=== PATIENT | male | born 1955 | race Caucasian/White ===

== ENCOUNTER → 2020-03-07 09:13 | Outpatient (REF) | payer BC, SELFPAY | LOC: ANHLAB 09:13 | PROVIDERS: Visit Provider Nurse Practitioner | DX: D49.2 Neoplasm of unspecified behavior of bone, soft tissue, and skin (principal) | CPT/HCPCS: 88305 ==

== ENCOUNTER → 2020-05-01 08:50 | Outpatient (REF) | payer BC, SELFPAY | LOC: ANHLAB 08:50 | PROVIDERS: Visit Provider Nurse Practitioner | DX: C44.311 Basal cell carcinoma of skin of nose (principal) | CPT/HCPCS: 88305; 88331 ==